=== PATIENT | male | born 1975 | race Caucasian/White ===

== ENCOUNTER 2018-05-27 09:43 | Emergency (ER) | payer BC ==
[2018-05-27 10:43] VITALS: BP 131/83
--- NOTE | 2018-05-27 12:16 | RAD ---
INDICATION: Dorsal pain and swelling of the left ankle COMPARISON: None. TECHNIQUE: 3 views of the left foot were obtained. FINDINGS: The adequately corticated bones are properly aligned. Joint spaces appear maintained. No fracture, dislocation or focal bony abnormality is seen. IMPRESSION: Normal radiograph of the left foot. If the patient's symptoms persist, follow-up imaging is recommended.
--- NOTE | 2018-05-27 13:07 | UC ---
Lower Extremity/Ankle HPI - HPI Summary HPI Summary: Pt is a 43 y/o M w/ c/o swollen left ankle onsetting five days ago. Pt states he was outside frequently last week and woke up five days ago w/ the swollen ankle. He describes the ankle as stiff and notes that he has been icing it and taking ibuprofen. He reports slight improvement 3 days ago, but Sx worsened afterwards and swelling moved to top of the foot. Pt states that the pain from foot was worsen than previously last night and pain is rated 6/10 on triage. He also notes tenderness and a lynette on the top of left foot. - History of Current Complaint Chief Complaint: UCLowerExtremity Stated Complaint: SWOLLEN ANKLE Time Seen by Provider: 05/27/18 10:45 Hx Obtained From: Patient Onset/Duration: Sudden Onset, Lasting Days - 5 days ago, Still Present Severity Currently: Moderate Pain Intensity: 6 Pain Scale Used: 0-10 Numeric - 6/10 Aggravating Factor(s): Nothing Alleviating Factor(s): Nothing - Allergies/Home Medications Allergies/Adverse Reactions: Allergies Allergy/AdvReac Type Severity Reaction Status Date / Time No Known Allergies Allergy Verified 05/27/18 10:43 Home Medications: Home Medications Ibuprofen 400 mg PO 05/27/18 [History] PMH/Surg Hx/FS Hx/Imm Hx Endocrine History: Other Other Endocrine History: NEGATIVE: diabetes Respiratory History: Other Other Respiratory History: NEGATIVE: COPD - Surgical History Surgical History: Yes Surgery Procedure, Year, and Place: finger on rt hand - Family History Known Family History: Negative: Blood Disorder - Social History Alcohol Use: Weekly Substance Use Type: None Smoking Status (MU): Never Smoked Tobacco Review of Systems Constitutional: Other - NEGATIVE: fever Musculoskeletal: Other: - swollen left ankle at onset, swelling has since moved to top of left foot; lynette on top of left foot; left foot pain and tenderness. All Other Systems Reviewed And Are Negative: Yes Physical Exam - Summary Physical Exam Summary: General: well-appearing, no pain distress Skin: warm, color reflects adequate perfusion, dry Head: normal Eyes: EOMI, NARA ENT: normal Neck: supple, nontender Respiratory: CTA, breath sounds present Cardiovascular: RRR Abdomen: soft, nontender Bowel: present Musculoskeletal: Left foot dorsum over the metatarsals is swollen, mild erythema , mild callor tender to palpation, ankle full range of motion, nontender, normal capillary refill. All else normal. Neurological: sensory/motor intact, A&O x3 Psychological: affect/mood appropriate Triage Information Reviewed: Yes Vital Signs: Initial Vital Signs Temp 98.8 F 05/27/18 10:39 Pulse 63 05/27/18 10:39 Resp 18 05/27/18 10:39 BP 131/83 05/27/18 10:39 Pulse Ox 99 05/27/18 10:39 Diagnostics - Radiology left foot X-ray Xray Interpretation: No Acute Changes Radiology Interpretation Completed By: Radiologist - Normal radiograph of the left foot. This report was reviewed by physician. Lower Extremity Course/Dx - Course Course Of Treatment: THE PATIENT REPORTS SIMILAR SX IN THE PAST THAT ENDED UP BEING LYME DX; HE PREFERS TO START TREATMENT FOR LYME AT THIS TIME. HE DECLINED A POST OP SHOE. F/U PMD; RECHECK SOONER IF WORSE. - Differential Dx/Diagnosis Provider Diagnoses: LEFT FOOT RASH. LEFT FOOT SPRAIN Discharge - Sign-Out/Discharge Documenting (check all that apply): Patient Departure - Discharge Plan Condition: Stable Disposition: HOME Prescriptions: DOXYcycline CAP(*) [DOXYcycline 100MG CAP(*)] 100 mg PO BID #28 cap Patient Education Materials: Acute Rash (ED), Foot Sprain (ED) Referrals: Rodolfo Lopez MD [Primary Care Provider] - Additional Instructions: FOLLOW UP WITH YOUR DOCTOR IF NOT COMPLETELY IMPROVED. GET RECHECKED FOR ANY WORSENING OF YOUR CONDITION OR QUESTIONS OR CONCERNS. - Billing Disposition and Condition Condition: STABLE Disposition: Home
== END 2018-05-27 11:53 | disposition home or self-care (01) ==
LOC: UCEAST 09:43
DX: R21 Rash and other nonspecific skin eruption (principal); S93.602A Unspecified sprain of left foot, initial encounter; X58.XXXA Exposure to other specified factors, initial encounter; Y93.9 Activity, unspecified; Y92.9 Unspecified place or not applicable
CPT/HCPCS: 99212; G0463